=== PATIENT | male | born 1980 | race Two or more races ===

== ENCOUNTER 2018-07-16 14:12 | Emergency (ER) | payer MEDICAID ==
[~2018-07-16] VITALS: Ht 175.3 cm; Wt 87.0 kg
[2018-07-16 14:20] VITALS: BP 127/70
== END 2018-07-16 20:15 | disposition left against medical advice (07) ==
LOC: ER 14:12
DX: Z53.21 Procedure and treatment not carried out due to patient leaving prior to being seen by health care provider (principal)